=== PATIENT | female | born 1950 | race Caucasian/White ===

== ENCOUNTER 2016-11-02 06:48 | Inpatient (IN) | payer OTHER ==
[~2016-11-02] VITALS: Ht 157.5 cm; Wt 126.1 kg
[~2016-11-02 06:48] MED LIST: BUSPAR10 MG PO; DAILY MULTIPLE1 EACH PO; EFFEXOR XR150 MG PO; FLEXERIL10 MG PO; HYDROCODON-ACE1 EAC9 PO; LEVOTHYROXINE150 MCG PO; LO-DOSE ASPIRIN81 M2 PO; LORATADINE10 M2 PO; PRAVASTATIN SOD40 MG PO; TRIAMTERENE-HC1 EACH PO; VITAMIN C1000 MG PO; VOLTAREN 1% GE100 GM TP
[2016-11-02 08:24] VITALS: BP 188/84
[2016-11-02 16:22] VITALS: BP 160/72
[2016-11-02 16:30] LABS: HEMATOCRIT 27.7 % (36.0-46.0); MCH 20.3 PG (29.0-34.0); MCHC 31.8 G/DL (30.0-36.0); RBC DIS.WIDTH-CV 17.7 % (11.8-14.6); RBC DIS.WIDTH-SD 40.1 % (39-53); RED BLOOD COUNT 4.33 M/uL (3.80-5.20); WHITE BLOOD COUNT 7.5 K/uL (4.1-10.2)
[2016-11-02 16:38] LABS: PLATELET COUNT 136 K/uL (156-360)
[2016-11-02 19:52] VITALS: BP 158/70
[2016-11-02 23:45] VITALS: BP 137/64
[2016-11-03 03:44] VITALS: BP 147/67
[2016-11-03 05:54] LABS: HEMATOCRIT 25.6 % (36.0-46.0); MCV 63.7 FL (83-99)
[2016-11-03 06:19] LABS: ANION GAP 9 MEQ/L (2-14); CHLORIDE 102 MEQ/L (99-109); GFR ESTIMATE (CALCULATED) > 59 mL/min/; GLUCOSE 146 mg/dL (70-99); POTASSIUM 3.9 MEQ/L (3.7-5.4); SAMPLE HEMOLYSIS CHECK 0; SAMPLE ICTERIC CHECK 0; SAMPLE LIPEMIA CHECK 0; SODIUM 137 MEQ/L (136-147); UREA NITROGEN (BUN) 13 mg/dL (9-23)
[2016-11-03 08:01] VITALS: BP 135/62
[2016-11-03 12:04] VITALS: BP 135/56
[2016-11-03 15:50] VITALS: BP 138/65
[2016-11-03 19:25] VITALS: BP 150/66
[2016-11-04] VITALS: BP 148/66
[2016-11-04 03:31] VITALS: BP 176/72
[2016-11-04 04:59] LABS: HEMATOCRIT 23.7 % (36.0-46.0); MCV 62.5 FL (83-99)
[2016-11-04 05:07] LABS: CHLORIDE 103 mEq/L (99-109); POTASSIUM 3.5 mEq/L (3.7-5.4); SODIUM 135 mEq/L (136-147)
[2016-11-04 05:09] LABS: GLUCOSE 124 mg/dL (70-99)
[2016-11-04 05:11] LABS: ANION GAP 8 MEQ/L (2-14)
[2016-11-04 05:13] LABS: GFR ESTIMATE (CALCULATED) > 59 mL/min/
[2016-11-04 05:14] LABS: UREA NITROGEN (BUN) 12 mg/dL (9-23)
[2016-11-04 08:00] VITALS: BP 135/60
[2016-11-04] MEDS ORDERED: SENNA PLUS TAB1 EACH PO (09:12)
[2016-11-04] MEDS ORDERED: LOVENOX40 MG/0.4 SC (09:13)
[2016-11-04] MEDS ORDERED: ENDOCET 5-3251 EACH PO (09:13)
[2016-11-04 12:21] VITALS: BP 175/76
[2016-11-04 15:11] VITALS: BP 121/51
== END 2016-11-04 16:00 | disposition home health service (06) | DRG 470 ==
LOC: 2SOUTH 06:48 → 3WEST 06:48 → 2SOUTH 09:22 → 3WEST 16:15
PROVIDERS: Orthopaedic Surgery; Physician Assistant
PROC: 0SR902A Replacement of Right Hip Joint with Metal on Polyethylene Synthetic Substitute, Uncemented, Open Approach (ICD-10-PCS; principal; 2016-11-02)
DX: M16.11 Unilateral primary osteoarthritis, right hip (principal); M25.551 Pain in right hip; I10 Essential (primary) hypertension; F32.9 Major depressive disorder, single episode, unspecified; E78.00 Pure hypercholesterolemia, unspecified; E07.9 Disorder of thyroid, unspecified; Z79.82 Long term (current) use of aspirin
CPT/HCPCS: 73501; 80048; 85014; 85018; 85027; 94660; 97530 GP; C1713; J0690; J1170; J1650; J1885; J2405; J3010; J7050

== ENCOUNTER 2016-11-07 14:19 | Emergency (ER) | payer OTHER ==
[~2016-11-07] VITALS: Ht 157.5 cm; Wt 128.4 kg
[~2016-11-07 14:19] MED LIST changes: +ENDOCET 5-3251 EACH PO; +LOVENOX40 MG/0.4 SC; +SENNA PLUS TAB1 EACH PO
[2016-11-07 15:55] LABS: HEMATOCRIT 24.1 % (36.0-46.0); MCH 20.4 PG (29.0-34.0); MCHC 32.4 G/DL (30.0-36.0); MCV 63.1 FL (83-99); RBC DIS.WIDTH-CV 17.8 % (11.8-14.6); RBC DIS.WIDTH-SD 36.6 % (39-53); RED BLOOD COUNT 3.82 M/uL (3.80-5.20); WHITE BLOOD COUNT 6.5 K/uL (4.1-10.2)
[2016-11-07 15:56] LABS: EOSINOPHIL (%) 2.8 % (0-5); EOSINOPHIL COUNT 0.2 K/uL (0-0.3); IMMATURE GRANULOCYTE (%) 0.5 % (0.0-0.7); IMMATURE GRANULOCYTE COUNT 0.3 K/uL; LYMPHOCYTE COUNT 1.7 K/uL (1.0-2.8); MEAN PLAT.VOLUME 9.1 uM^3 (9.5-12.4); MONOCYTE (%) 14.7 % (3-12); NEUTROPHIL COUNT 3.6 K/uL (1.8-6.4); PLATELET COUNT 184 K/uL (156-360)
[2016-11-07 16:03] LABS: CHLORIDE 104 mEq/L (99-109); POTASSIUM 3.9 mEq/L (3.7-5.4); SODIUM 137 mEq/L (136-147)
[2016-11-07 16:05] LABS: GLUCOSE 79 mg/dL (70-99)
[2016-11-07 16:06] LABS: ANION GAP 9 MEQ/L (2-14)
[2016-11-07 16:07] LABS: TOTAL BILIRUBIN 2.1 mg/dL (0.0-1.0)
[2016-11-07 16:08] LABS: ALKALINE PHOSPHATASE 74 IU/L (3-129)
[2016-11-07 16:09] LABS: GFR ESTIMATE (CALCULATED) > 59 mL/min/
[2016-11-07 16:10] LABS: UREA NITROGEN (BUN) 8 mg/dL (9-23)
[2016-11-07] MEDS ORDERED: KEFLEX500 MG PO (19:27)
[2016-11-07 20:08] VITALS: BP 144/67
== END 2016-11-07 20:11 | disposition home or self-care (01) ==
LOC: EME 14:19
PROVIDERS: Emergency Medicine
DX: T81.4XXA Infection following a procedure, initial encounter (principal); L03.115 Cellulitis of right lower limb; Z96.641 Presence of right artificial hip joint; M25.551 Pain in right hip; Z88.6 Allergy status to analgesic agent; Z88.8 Allergy status to other drugs, medicaments and biological substances
CPT/HCPCS: 73701; 80053; 85025; 87040; 99281; 99285

== ENCOUNTER 2017-09-01 19:00 | Inpatient (IN) | payer OTHER ==
[~2017-09-01] VITALS: Ht 157.5 cm; Wt 122.8 kg
[~2017-09-01 19:00] MED LIST changes: +KEFLEX500 MG PO
[2017-09-01 20:12] LABS: HEMATOCRIT 20.2 % (36.0-46.0); MCH 20.7 PG (29.0-34.0); MCHC 32.2 G/DL (30.0-36.0); MCV 64.3 FL (83-99); MEAN PLAT.VOLUME 10.9 uM^3 (9.5-12.4); NRBC (%) 1.2 /100 WBC (0-0); PLATELET COUNT 162 K/uL (156-360); RBC DIS.WIDTH-CV 17.6 % (11.8-14.6); RBC DIS.WIDTH-SD 38.9 % (39-53); RED BLOOD COUNT 3.14 M/uL (3.80-5.20); WHITE BLOOD COUNT 11.6 K/uL (4.1-10.2)
[2017-09-01 20:15] LABS: INTER. NORMALIZED RATIO 1.5; PROTHROMBIN TIME 16.7 SEC (10.2-12.9)
[2017-09-01 20:17] LABS: CHLORIDE 107 mEq/L (99-109); POTASSIUM 4.5 mEq/L (3.7-5.4); PTT 36.4 SEC (25-37); SODIUM 140 mEq/L (136-147)
[2017-09-01 20:19] LABS: GLUCOSE 158 mg/dL (70-99)
[2017-09-01 20:20] LABS: ANION GAP 11 MEQ/L (2-14)
[2017-09-01 20:21] LABS: TOTAL BILIRUBIN 2.6 mg/dL (0.0-1.0)
[2017-09-01 20:22] LABS: ALKALINE PHOSPHATASE 62 IU/L (3-129)
[2017-09-01 20:23] LABS: GFR ESTIMATE (CALCULATED) > 59 mL/min/
[2017-09-01 20:24] LABS: UREA NITROGEN (BUN) 21 mg/dL (9-23)
[2017-09-01 20:30] LABS: TROP-I INTERPRETATION NEGATIVE; TROPONIN-I 0.02 ng/mL (0.0-0.30)
[2017-09-01] MEDS ORDERED: ENDOCET 5-3251 EACH PO (21:14)
[2017-09-01] MEDS ORDERED: PRINIVIL20 MG PO (21:15)
[2017-09-01] MEDS ORDERED: TURMERIC500 M2 PO (21:16)
[2017-09-01] MEDS ORDERED: VITAMIN D31000 UNI2 PO (21:16)
[2017-09-01] MEDS ORDERED: LO-DOSE ASPIRIN81 M1 PO (21:16)
[2017-09-01 21:34] VITALS: BP 119/45
[2017-09-01 21:49] VITALS: BP 127/50
[2017-09-01 22:49] VITALS: BP 141/58
[2017-09-01 23:45] LABS: ADD MIUA? YES; BILIRUBIN NEGATIVE; BLOOD NEGATIVE; COLOR YELLOW ((YELLOW)); GLUCOSE (STRIP) NEGATIVE; KETONES NEGATIVE; LEUKOCYTES LARGE; NITRITE NEGATIVE; PROTEIN (STRIP) NEGATIVE
[2017-09-01 23:49] VITALS: BP 158/54
[2017-09-01 23:51] LABS: BACTERIA RARE /HPF; EPITHELIAL CELLS RARE /HPF; HYALINE CASTS 0-5 /LPF; MUCUS TRACE /LPF; RED BLOOD CELLS 0-5 /HPF (0-5); UCUL ADDED? YES; WHITE BLOOD CELLS 20-30 /HPF (0-5)
[2017-09-02] VITALS (12 sets, daily range): BP systolic 121–178; BP diastolic 53–70
[2017-09-02] LABS: SPECIFIC GRAVITY 1.052 (1.000-1.030)
[2017-09-02 08:48] LABS: HEMATOCRIT 22.9 % (36.0-46.0)
[2017-09-02 08:51] LABS: MCV 68.8 FL (83-99)
[2017-09-02 16:41] LABS: ANION GAP 9 MEQ/L (2-14); CHLORIDE 111 MEQ/L (99-109); POTASSIUM 3.8 MEQ/L (3.7-5.4); SAMPLE HEMOLYSIS CHECK 0; SAMPLE ICTERIC CHECK 0; SAMPLE LIPEMIA CHECK 0; SODIUM 143 MEQ/L (136-147)
[2017-09-02 16:46] LABS: GFR ESTIMATE (CALCULATED) > 59 mL/min/; GLUCOSE 139 mg/dL (70-99); UREA NITROGEN (BUN) 21 mg/dL (9-23)
[2017-09-02 20:11] LABS: HEMATOCRIT 27.5 % (36.0-46.0); MCV 70.3 FL (83-99)
[2017-09-03] VITALS (7 sets, daily range): BP systolic 162–188; BP diastolic 67–85
[2017-09-03 05:34] LABS: BASOPHIL COUNT 0.1 K/uL (0-0.1); EOSINOPHIL (%) 1.2 % (0-5); EOSINOPHIL COUNT 0.1 K/uL (0-0.3); HEMATOCRIT 25.3 % (36.0-46.0); IMMATURE GRANULOCYTE COUNT 0.3 K/uL; INSTRUMENT ABS NEUTROPHIL CT 7.6 K/uL; LYMPHOCYTE COUNT 1.8 K/uL (1.0-2.8); MCH 23.4 PG (29.0-34.0); MCHC 33.2 G/DL (30.0-36.0); MCV 70.5 FL (83-99); MEAN PLAT.VOLUME 10.8 uM^3 (9.5-12.4); MONOCYTE (%) 8.7 % (3-12); NEUTROPHIL (%) 70.1 % (45-76); NEUTROPHIL COUNT 7.6 K/uL (1.8-6.4); NRBC (%) 0.7 /100 WBC (0-0); PLATELET COUNT 142 K/uL (156-360); RBC DIS.WIDTH-CV 22.2 % (11.8-14.6); RBC DIS.WIDTH-SD 54.5 % (39-53); RED BLOOD COUNT 3.59 M/uL (3.80-5.20); WHITE BLOOD COUNT 10.9 K/uL (4.1-10.2)
[2017-09-03 05:38] LABS: INTER. NORMALIZED RATIO 1.4
[2017-09-03 05:59] LABS: ALKALINE PHOSPHATASE 58 IU/L (3-129); ANION GAP 12 MEQ/L (2-14); CHLORIDE 111 MEQ/L (99-109); GFR ESTIMATE (CALCULATED) > 59 mL/min/; GLUCOSE 131 mg/dL (70-99); POTASSIUM 3.6 MEQ/L (3.7-5.4); SAMPLE HEMOLYSIS CHECK 0; SAMPLE ICTERIC CHECK 1; SAMPLE LIPEMIA CHECK 0; SODIUM 144 MEQ/L (136-147); TOTAL BILIRUBIN 3.2 MG/DL (0.0-1.0); UREA NITROGEN (BUN) 18 mg/dL (9-23)
[2017-09-03 11:20] LABS: HEMATOCRIT 28.1 % (36.0-46.0); MCH 22.9 PG (29.0-34.0); MCHC 32.4 G/DL (30.0-36.0); MCV 70.6 FL (83-99); MEAN PLAT.VOLUME 10.9 uM^3 (9.5-12.4); NRBC (%) 0.8 /100 WBC (0-0); PLATELET COUNT 164 K/uL (156-360); RBC DIS.WIDTH-CV 22.6 % (11.8-14.6); RBC DIS.WIDTH-SD 55.6 % (39-53); RED BLOOD COUNT 3.98 M/uL (3.80-5.20); WHITE BLOOD COUNT 13.1 K/uL (4.1-10.2)
[2017-09-03 20:22] LABS: HEMATOCRIT 25.3 % (36.0-46.0); MCV 72.1 FL (83-99)
[2017-09-04 06:07] LABS: BASOPHIL COUNT 0.1 K/uL (0-0.1); EOSINOPHIL (%) 2.1 % (0-5); EOSINOPHIL COUNT 0.2 K/uL (0-0.3); HEMATOCRIT 24.8 % (36.0-46.0); IMMATURE GRANULOCYTE (%) 2.3 % (0.0-0.7); IMMATURE GRANULOCYTE COUNT 0.2 K/uL; INSTRUMENT ABS NEUTROPHIL CT 5.9 K/uL; LYMPHOCYTE COUNT 1.7 K/uL (1.0-2.8); MCH 23.2 PG (29.0-34.0); MCHC 32.3 G/DL (30.0-36.0); MCV 71.9 FL (83-99); MEAN PLAT.VOLUME 10.7 uM^3 (9.5-12.4); MONOCYTE (%) 10.7 % (3-12); NEUTROPHIL (%) 65.1 % (45-76); NEUTROPHIL COUNT 5.9 K/uL (1.8-6.4); NRBC (%) 2.2 /100 WBC (0-0); PLATELET COUNT 132 K/uL (156-360); RBC DIS.WIDTH-CV 22.9 % (11.8-14.6); RBC DIS.WIDTH-SD 57.9 % (39-53); RED BLOOD COUNT 3.45 M/uL (3.80-5.20)
[2017-09-04 06:31] LABS: ALKALINE PHOSPHATASE 58 IU/L (3-129); ANION GAP 9 MEQ/L (2-14); CHLORIDE 116 MEQ/L (99-109); GFR ESTIMATE (CALCULATED) > 59 mL/min/; GLUCOSE 120 mg/dL (70-99); MAGNESIUM 2.1 mg/dl (1.3-2.7); POTASSIUM 3.2 MEQ/L (3.7-5.4); SAMPLE HEMOLYSIS CHECK 0; SAMPLE ICTERIC CHECK 1; SAMPLE LIPEMIA CHECK 0; SODIUM 148 MEQ/L (136-147); TOTAL BILIRUBIN 3.9 MG/DL (0.0-1.0); UREA NITROGEN (BUN) 15 mg/dL (9-23)
[2017-09-04 08:19] VITALS: BP 158/63
[2017-09-04 12:44] VITALS: BP 155/66
[2017-09-04 19:55] LABS: HEMATOCRIT 24.2 % (36.0-46.0); MCV 72.2 FL (83-99)
[2017-09-04 20:22] VITALS: BP 193/81
[2017-09-04 23:04] VITALS: BP 173/72
[2017-09-05] VITALS (7 sets, daily range): BP systolic 137–155; BP diastolic 63–69
[2017-09-05 06:03] LABS: HEMATOCRIT 23.6 % (36.0-46.0); MCH 23.1 PG (29.0-34.0); MCHC 31.8 G/DL (30.0-36.0); MCV 72.6 FL (83-99); MEAN PLAT.VOLUME 10.6 uM^3 (9.5-12.4); NRBC (%) 2.7 /100 WBC (0-0); PLATELET COUNT 116 K/uL (156-360); RBC DIS.WIDTH-CV 23.1 % (11.8-14.6); RED BLOOD COUNT 3.25 M/uL (3.80-5.20); WHITE BLOOD COUNT 8.8 K/uL (4.1-10.2)
[2017-09-05 06:31] LABS: ALKALINE PHOSPHATASE 57 IU/L (3-129); ANION GAP 10 MEQ/L (2-14); CHLORIDE 112 MEQ/L (99-109); GFR ESTIMATE (CALCULATED) > 59 mL/min/; GLUCOSE 112 mg/dL (70-99); POTASSIUM 3.4 MEQ/L (3.7-5.4); SAMPLE HEMOLYSIS CHECK 0; SAMPLE ICTERIC CHECK 1; SAMPLE LIPEMIA CHECK 0; SODIUM 144 MEQ/L (136-147); TOTAL BILIRUBIN 3.7 MG/DL (0.0-1.0); UREA NITROGEN (BUN) 13 mg/dL (9-23)
[2017-09-05 17:01] LABS: BASOPHIL COUNT 0.1 K/uL (0-0.1); EOSINOPHIL (%) 1.7 % (0-5); EOSINOPHIL COUNT 0.2 K/uL (0-0.3); HEMATOCRIT 26.6 % (36.0-46.0); IMMATURE GRANULOCYTE (%) 1.5 % (0.0-0.7); IMMATURE GRANULOCYTE COUNT 0.2 K/uL; INSTRUMENT ABS NEUTROPHIL CT 7.2 K/uL; MCH 23.9 PG (29.0-34.0); MCHC 32.3 G/DL (30.0-36.0); MCV 73.9 FL (83-99); MONOCYTE (%) 12.4 % (3-12); MONOCYTE COUNT 1.2 K/uL (0-0.8); NEUTROPHIL (%) 73.2 % (45-76); NEUTROPHIL COUNT 7.2 K/uL (1.8-6.4); NRBC (%) 3.5 /100 WBC (0-0); RBC DIS.WIDTH-CV 23.5 % (11.8-14.6); RBC DIS.WIDTH-SD 59.9 % (39-53); WHITE BLOOD COUNT 9.8 K/uL (4.1-10.2)
[2017-09-05 17:02] LABS: ANISOCYTOSIS 2+; HYPOCHROMASIA 2+; MEAN PLAT.VOLUME 10.7 uM^3 (9.5-12.4); MICROCYTOSIS 2+; OVALOCYTES 1+; PLAT.SUFFICIENCY DECREASED; PLATELET COUNT 128 K/uL (156-360); POLYCHROMASIA 1+; TARGET CELLS 1+; TEAR DROP CELLS 1+
[2017-09-05 20:34] LABS: HEMATOCRIT 26.2 % (36.0-46.0); MCV 73.2 FL (83-99)
[2017-09-06 00:30] VITALS: BP 141/74
[2017-09-06 08:28] VITALS: BP 134/63
[2017-09-06 08:45] LABS: BASOPHIL COUNT 0.1 K/uL (0-0.1); EOSINOPHIL (%) 2.9 % (0-5); EOSINOPHIL COUNT 0.2 K/uL (0-0.3); HEMATOCRIT 25.4 % (36.0-46.0); IMMATURE GRANULOCYTE (%) 1.8 % (0.0-0.7); IMMATURE GRANULOCYTE COUNT 0.1 K/uL; INSTRUMENT ABS NEUTROPHIL CT 3.4 K/uL; LYMPHOCYTE COUNT 1.1 K/uL (1.0-2.8); MCH 23.5 PG (29.0-34.0); MCHC 31.9 G/DL (30.0-36.0); MCV 73.8 FL (83-99); MONOCYTE (%) 12.3 % (3-12); MONOCYTE COUNT 0.7 K/uL (0-0.8); NEUTROPHIL (%) 61.6 % (45-76); NEUTROPHIL COUNT 3.4 K/uL (1.8-6.4); NRBC (%) 2.4 /100 WBC (0-0); RBC DIS.WIDTH-CV 23.6 % (11.8-14.6); RBC DIS.WIDTH-SD 59.8 % (39-53); RED BLOOD COUNT 3.44 M/uL (3.80-5.20); WHITE BLOOD COUNT 5.5 K/uL (4.1-10.2)
[2017-09-06 08:56] LABS: ANION GAP 9 MEQ/L (2-14); CHLORIDE 111 MEQ/L (99-109); GFR ESTIMATE (CALCULATED) > 59 mL/min/; GLUCOSE 90 mg/dL (70-99); POTASSIUM 3.1 MEQ/L (3.7-5.4); SAMPLE HEMOLYSIS CHECK 0; SAMPLE ICTERIC CHECK 1; SAMPLE LIPEMIA CHECK 0; SODIUM 143 MEQ/L (136-147); UREA NITROGEN (BUN) 8 mg/dL (9-23)
[2017-09-06 09:10] LABS: MEAN PLAT.VOLUME 10.4 uM^3 (9.5-12.4); PLAT.SUFFICIENCY DECREASED; PLATELET COUNT 106 K/uL (156-360)
[2017-09-06 11:04] VITALS: BP 135/63
[2017-09-06 16:54] VITALS: BP 147/65
[2017-09-06 19:45] LABS: HEMATOCRIT 26.7 % (36.0-46.0); MCV 73.8 FL (83-99)
[2017-09-06 21:00] VITALS: BP 165/72
[2017-09-07 00:30] VITALS: BP 134/80
[2017-09-07 04:01] VITALS: BP 144/71
[2017-09-07 07:19] LABS: MCV 72.7 FL (83-99)
[2017-09-07 07:24] LABS: EOSINOPHIL (%) 2.5 % (0-5); EOSINOPHIL COUNT 0.1 K/uL (0-0.3); IMMATURE GRANULOCYTE (%) 1.3 % (0.0-0.7); IMMATURE GRANULOCYTE COUNT 0.1 K/uL; INSTRUMENT ABS NEUTROPHIL CT 3.1 K/uL; LYMPHOCYTE COUNT 1.4 K/uL (1.0-2.8); MCH 23.7 PG (29.0-34.0); MCHC 32.4 G/DL (30.0-36.0); MCV 73.1 FL (83-99); MEAN PLAT.VOLUME 10.2 uM^3 (9.5-12.4); MONOCYTE COUNT 0.8 K/uL (0-0.8); NEUTROPHIL (%) 56.5 % (45-76); NEUTROPHIL COUNT 3.1 K/uL (1.8-6.4); NRBC (%) 1.3 /100 WBC (0-0); PLATELET COUNT 105 K/uL (156-360); RBC DIS.WIDTH-CV 23.6 % (11.8-14.6); RBC DIS.WIDTH-SD 60.4 % (39-53); RED BLOOD COUNT 3.42 M/uL (3.80-5.20); WHITE BLOOD COUNT 5.5 K/uL (4.1-10.2)
[2017-09-07 07:39] LABS: ALKALINE PHOSPHATASE 53 IU/L (3-129); ANION GAP 7 MEQ/L (2-14); CHLORIDE 111 MEQ/L (99-109); GFR ESTIMATE (CALCULATED) > 59 mL/min/; GLUCOSE 88 mg/dL (70-99); POTASSIUM 3.4 MEQ/L (3.7-5.4); SAMPLE HEMOLYSIS CHECK 0; SAMPLE ICTERIC CHECK 1; SAMPLE LIPEMIA CHECK 0; SODIUM 142 MEQ/L (136-147); TOTAL BILIRUBIN 3.2 MG/DL (0.0-1.0); UREA NITROGEN (BUN) 7 mg/dL (9-23)
[2017-09-07 08:18] VITALS: BP 146/65
[2017-09-07 11:02] VITALS: BP 152/66
[2017-09-07 15:35] VITALS: BP 134/63
[2017-09-07 19:56] LABS: HEMATOCRIT 26.5 % (36.0-46.0); MCV 73.8 FL (83-99)
[2017-09-07 20:00] VITALS: BP 146/65
[2017-09-08 00:51] VITALS: BP 124/58
[2017-09-08 05:21] VITALS: BP 125/57
[2017-09-08 05:54] LABS: EOSINOPHIL (%) 2.8 % (0-5); EOSINOPHIL COUNT 0.1 K/uL (0-0.3); HEMATOCRIT 25.4 % (36.0-46.0); IMMATURE GRANULOCYTE (%) 1.1 % (0.0-0.7); IMMATURE GRANULOCYTE COUNT 0.1 K/uL; INSTRUMENT ABS NEUTROPHIL CT 2.8 K/uL; LYMPHOCYTE COUNT 1.1 K/uL (1.0-2.8); MCH 23.8 PG (29.0-34.0); MCHC 31.9 G/DL (30.0-36.0); MCV 74.7 FL (83-99); MONOCYTE (%) 11.5 % (3-12); MONOCYTE COUNT 0.5 K/uL (0-0.8); NEUTROPHIL (%) 60.5 % (45-76); NEUTROPHIL COUNT 2.8 K/uL (1.8-6.4); NRBC (%) 0.9 /100 WBC (0-0); RBC DIS.WIDTH-CV 23.9 % (11.8-14.6); RBC DIS.WIDTH-SD 62.4 % (39-53); WHITE BLOOD COUNT 4.7 K/uL (4.1-10.2)
[2017-09-08 06:03] LABS: ALKALINE PHOSPHATASE 51 IU/L (3-129); ANION GAP 9 MEQ/L (2-14); CHLORIDE 110 MEQ/L (99-109); GFR ESTIMATE (CALCULATED) > 59 mL/min/; GLUCOSE 107 mg/dL (70-99); POTASSIUM 3.5 MEQ/L (3.7-5.4); SAMPLE HEMOLYSIS CHECK 0; SAMPLE ICTERIC CHECK 0; SAMPLE LIPEMIA CHECK 0; SODIUM 142 MEQ/L (136-147); TOTAL BILIRUBIN 2.6 MG/DL (0.0-1.0); UREA NITROGEN (BUN) 9 mg/dL (9-23)
[2017-09-08 06:10] LABS: MEAN PLAT.VOLUME 11.8 uM^3 (9.5-12.4); PLAT.SUFFICIENCY DECREASED; PLATELET COUNT 105 K/uL (156-360)
[2017-09-08 07:53] VITALS: BP 144/64
[2017-09-08 11:30] VITALS: BP 131/59
[2017-09-08] MEDS ORDERED: XIFAXAN550 MG PO (11:54)
[2017-09-08] MEDS ORDERED: PANTOPRAZOLE SO40 MG PO (11:57)
== END 2017-09-08 13:55 | disposition home or self-care (01) | DRG 330 ==
LOC: EME → EDBD 19:00 → EME 19:00 → ENRESERV 22:22 → EDOF 22:22 → 4EAST 22:22 → ENRESERV 22:47 → 4EAST 09-02 00:06 → ENPENDDIS 09-08 → 4EAST 09-08 13:55
PROVIDERS: Emergency Medicine; Hospitalist; Internal Medicine; Internal Medicine Gastroenterology
DX: K25.4 Chronic or unspecified gastric ulcer with hemorrhage (principal); K76.6 Portal hypertension; K56.7 Ileus, unspecified; N39.0 Urinary tract infection, site not specified; Z68.43 Body mass index [BMI] 50.0-59.9, adult; I10 Essential (primary) hypertension; K92.0 Hematemesis; E03.9 Hypothyroidism, unspecified; D56.9 Thalassemia, unspecified; E78.5 Hyperlipidemia, unspecified; G89.29 Other chronic pain; I85.00 Esophageal varices without bleeding; J44.9 Chronic obstructive pulmonary disease, unspecified; K74.60 Unspecified cirrhosis of liver; R16.1 Splenomegaly, not elsewhere classified; F39 Unspecified mood [affective] disorder; K29.70 Gastritis, unspecified, without bleeding; K72.90 Hepatic failure, unspecified without coma; Z96.641 Presence of right artificial hip joint; E66.9 Obesity, unspecified; K59.00 Constipation, unspecified; Z79.82 Long term (current) use of aspirin; Z90.49 Acquired absence of other specified parts of digestive tract
CPT/HCPCS: 71010; 74000; 74177; 80048; 80053; 80069; 81003; 82140; 83735; 84100; 84484; 85014; 85018; 85025; 85027; 85610; 85730; 86850; 86900; 86901; 86920; 87086; 88305; 88342 TC; 93005; 99281; 99285; C9113; J0360; J0696; J1170; J2250; J2354; J2405; J2765; J3010; J3480; J7030; J7050; P9016